=== PATIENT | female | born 1990 | race Caucasian/White ===

== ENCOUNTER → 2022-06-01 12:26 | Outpatient (CLI) | payer OTHER, SELFPAY | PROVIDERS: Referring Provider Internal Medicine; Visit Provider Internal Medicine | DX: Z23 Encounter for immunization (principal) | CPT/HCPCS: 90471; 90686 ==

== ENCOUNTER → 2022-11-27 07:50 | Outpatient (CLI) | payer OTHER, SELFPAY | PROVIDERS: Visit Provider Physician Assistant | DX: R30.0 Dysuria (principal) | CPT/HCPCS: 87077; 87086; 87186 ==

== ENCOUNTER 2023-01-27 06:54 | Emergency (ER) | payer OTHER, SELFPAY ==
[2023-01-27 06:59] VITALS: BP 122/72; PULSE 74; RESP 16; TEMP 36.3; O2SAT 100; BMI 33.2
--- NOTE | 2023-01-27 07:28 | ED_ITS ---
HPI - General Adult General Chief complaint: Urogenital-Female Stated complaint: watery menstrual cycle per pt Time Seen by Provider: 01/27/23 07:10 Source: patient Mode of arrival: Ambulatory History of Present Illness HPI narrative: Patient is a 32-year-old female. She is a . Her last was 5 years ago. She does have a ParaGard in place for control. This has been in place for just about 5 years. She is normally fairly regular with her menstrual cycles. A couple weeks ago she had what she describes as a ?normal? menstrual cycle. She states that she bled for approximately 7 days. She stated that the bleeding never actually went away but it did improve to the point that she thought that the cycle was ending however they never completely went away and for the past couple days it is now increased. States she is passing clots. She denies any urinary symptoms. No fevers. No change in bowel habits. No prior abdominal surgeries. 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 Related Data Allergies Allergy/AdvReac Type Severity Reaction Status Date / Time No Known Drug Allergies Allergy Unverified 11/27/22 07:58 Review of Systems Constitutional Constitutional: Reports system reviewed and no additional complaints, except as documented Gastrointestinal Gastrointestinal: Reports system reviewed and no additional complaints, except as documented Genitourinary Genitourinary: Reports system reviewed and no additional complaints, except as documented Musculoskeletal Musculoskeletal: Reports system reviewed and no additional complaints, except as documented Hematologic/Lymphatic On Anticoagulants: No Patient History Social History Smoking Status: Never smoker Smoking Status: Never smoker Substance Use Type: does not use Exam Initial Vital Signs Initial Vital Signs: Vital Signs Temperature 97.4 F L 01/27/23 06:59 Pulse Rate 74 01/27/23 06:59 Respiratory Rate 16 01/27/23 06:59 Blood Pressure 122/72 01/27/23 06:59 Pulse Oximetry 100 01/27/23 06:59 Oxygen Delivery Method Room Air 01/27/23 06:59 Const General: cooperative and comfortable HENMT Head: normal to inspection and normocephalic Resp Effort & Inspection: normal respiratory effort Cardio Rate: regular rate GI Inspection: normal to inspection and non-distended Skin General: no rashes or lesions noted Neuro General: patient alert, patient awake and moves all extremities Extrem General: normal to inspection Course Orders Ordered: ED Orders 01/27/23 07:28 US pelvic complete Stat 01/27/23 07:49 Basic Metabolic Panel Stat Complete Blood Count AUTO DIFF Stat Thyroid Stimulating Hormone Stat Vital Signs Vital signs: Vital Signs - 8 hr 01/27/23 06:59 Temperature 97.4 F L Pulse Rate 74 Respiratory Rate 16 Blood Pressure 122/72 Pulse Oximetry 100 Oxygen Delivery Method Room Air Medical Decision Making Lab Data Lab results reviewed: Yes I reviewed the patient's lab results. 01/27/23 07:49 01/27/23 07:49 Labs: Lab Results 01/27/23 01/27/23 01/27/23 Range/Units 07:49 07:49 07:49 WBC 5.8 (4.5-11.0) X10^3/uL RBC 4.53 (4.0-5.2) X10^6/uL Hgb 12.4 (12.0-16.0) g/dL Hct 36.7 (36-46) % MCV 80.9 (80-100) fL MCH 27.4 (26-34) PG MCHC 33.8 (30-36) % RDW 13.6 (11.6-14.8) % Plt Count 273 (150-400) X10^3/uL Neut % (Auto) 58.8 (50-75) % Lymph % (Auto) 30.8 (25-40) % Taliaferro % (Auto) 6.1 (3-14) % Eos % (Auto) 3.6 (2-4) % Baso % (Auto) 0.7 (0-2) % Neut # (Auto) 3400 (9778-8525) /uL Lymph # (Auto) 1800 (7590-2981) /uL Taliaferro # (Auto) 400 (0-900) /uL Eos # (Auto) 200 (0-450) /uL Baso # (Auto) 0 (0-100) /uL Sodium 139 (137-145) mmol/L Potassium 3.4 (3.4-5.1) mmol/L Chloride 103 (98-107) mmol/L Carbon Dioxide 30 (22-32) mmol/L BUN 10 (7-17) mg/dL Creatinine 0.70 (0.52-1.04) mg/dL Estimated GFR > 60 (>60) mL/min BUN/Creatinine Ratio 14.3 (6-22) Glucose 94 (70-100) mg/dL Calcium 9.1 (8.4-10.2) mg/dL TSH 1.03 (0.47-4.68) uIU/mL Point of Care Testing Test Results Negative Urine Dip Bedside Urine Glucose Negative Bedside Urine Bilirubin - Negative Bedside Urine Ketone - Negative Urine Specific Julian 1.015 Bedside Urine Occult Blood +++ Bedside Urine pH 7.0 Bedside Urine Protein - Negative Bedside Urine Urobilinogen - Negative Bedside Urine Nitrite - Negative Bedside Urine Leukocytes - Negative Esterase Point of care testing: Point of Care Testing Test Results Negative Urine Dip Bedside Urine Glucose Negative Bedside Urine Bilirubin - Negative Bedside Urine Ketone - Negative Urine Specific Julian 1.015 Bedside Urine Occult Blood +++ Bedside Urine pH 7.0 Bedside Urine Protein - Negative Bedside Urine Urobilinogen - Negative Bedside Urine Nitrite - Negative Bedside Urine Leukocytes - Negative Esterase Imaging Data US - DIP GUIDER STOVES: Radiologist's Impression: PROCEDURE:? US PELVIC COMPLETE ? INDICATIONS:? DUB ? TECHNIQUE:? Real-time scanning was performed of the pelvic organs, with image documentation.? Additional endovaginal scanning was necessary due to incomplete visualization of the adnexal and endometrial structures by transabdominal scanning.? ? COMPARISON:? None. ? FINDINGS:? ?? Uterus:? Uterus is anteverted and normal in size at 9.1 x 4.8 x 6.1 cm. The myometrium is homogeneous. ? The endometrium measures 9.3 mm combined thickness.? Echotexture is heterogenous ? Ovaries:? The right ovary measures 2.9 x 3.5 x 3.8 cm, with a calculated ovarian volume of 19.9 cc. The left ovary measures 1.2 x 3.2 x 1.7 cm, with a calculated ovarian volume of 3.4 cc. The ovaries have a normal sonographic appearance.? The right ovary has a 2.6 x 2.8 x 2.7 cm simple cyst.? Less than 12 follicles can be seen in each ovary.? No adnexal masses are seen. ? Other:? No pathologic free abdominal or pelvic fluid. ? ? IMPRESSION:? 1. No acute ultrasound abnormality. 2. IUD appears well positioned. 3. Simple right ovarian cyst.? MDM Narrative Medical decision making narrative: Patient's workup here in the emergency department is very reassuring. She is no t anemic. Not hypotensive. Ultrasound shows no acute pathology. She does have a nonhormonal IUD. We discussed options to include starting her on a oral hormonal control versus watching and waiting to see if her symptoms improve. After this discussion she would like to not start on any new medication. She was given information for follow-up with obgyn hospitalist physician here at this hospital. She was given return precautions. She expressed understanding and agreement. Discharge Plan Departure Patient Disposition: Home Clinical Impression: Abnormal vaginal bleeding Instructions: DI for Vaginal Bleeding Activity Restrictions/Additional Instructions: I do recommend that you talk with your primary doctor about a referral to see obgyn hospitalist physician. Return to the emergency department for new or worsening symptoms like we discussed. Referrals: Liliya Delong MD [Physician] - Miscellaneous,MD Alisa [Primary Care Provider] - Stand Alone Forms: Patient Portal/API
--- NOTE | 2023-01-27 07:28 | DI.US.S_ITS ---
PROCEDURE: US PELVIC COMPLETE INDICATIONS: DUB TECHNIQUE: Real-time scanning was performed of the pelvic organs, with image documentation. Additional endovaginal scanning was necessary due to incomplete visualization of the adnexal and endometrial structures by transabdominal scanning. COMPARISON: None. FINDINGS: Uterus: Uterus is anteverted and normal in size at 9.1 x 4.8 x 6.1 cm. The myometrium is homogeneous. The endometrium measures 9.3 mm combined thickness. Echotexture is heterogenous Ovaries: The right ovary measures 2.9 x 3.5 x 3.8 cm, with a calculated ovarian volume of 19.9 cc. The left ovary measures 1.2 x 3.2 x 1.7 cm, with a calculated ovarian volume of 3.4 cc. The ovaries have a normal sonographic appearance. The right ovary has a 2.6 x 2.8 x 2.7 cm simple cyst. Less than 12 follicles can be seen in each ovary. No adnexal masses are seen. Other: No pathologic free abdominal or pelvic fluid. IMPRESSION: 1. No acute ultrasound abnormality. 2. IUD appears well positioned. 3. Simple right ovarian cyst. We strive to produce accurate, complete, and clear reports of imaging services. To assist us in improving patient care, this report was composed using standard report templates and voice recognition software. Therefore, it may contain abnormal punctuation, insertions and/or omissions. Occasional wrong-word or sound-alike substitutions may occur. Though we review the report and make efforts to correct it, we do recommend that the report be read carefully in proper context to recognize any text inaccuracies. Dictated by: Aramis Hernandez M.D. on 01/27/2023 at 8:09 Approved by: Aramis Hernandez M.D. on 01/27/2023 at 8:12
[2023-01-27 07:59] LABS: Add Manual Diff / Slide Review NO; Basophils Absolute Auto 0 /uL (0-100); Basophils Percent Auto 0.7 % (0-2); Eosinophils Absolute Auto 200 /uL (0-450); Eosinophils Percent Auto 3.6 % (2-4); Hematocrit 36.7 % (36-46); Hemoglobin 12.4 g/dL (12.0-16.0); Lymphocytes Absolute Auto 1800 /uL (1100-4500); Lymphocytes Percent Auto 30.8 % (25-40); Mean Corpuscular HGB Conc 33.8 % (30-36); Mean Corpuscular Hemoglobin 27.4 PG (26-34); Mean Corpuscular Volume 80.9 fL (80-100); Monocytes Absolute Auto 400 /uL (0-900); Monocytes Percent Auto 6.1 % (3-14); Neutrophils Absolute Auto 3400 /uL (1500-7000); Neutrophils Percent Auto 58.8 % (50-75); Platelet Count 273 X10^3/uL (150-400); Red Blood Cell Count 4.53 X10^6/uL (4.0-5.2); Red Cell Distribution Width 13.6 % (11.6-14.8); White Blood Cell Count 5.8 X10^3/uL (4.5-11.0)
[2023-01-27 08:14] LABS: BUN Creatinine Ratio 14.3 (6-22); Blood Urea Nitrogen 10 mg/dL (7-17); Calcium 9.1 mg/dL (8.4-10.2); Carbon Dioxide 30 mmol/L (22-32); Chloride 103 mmol/L (98-107); Estimated Glomerular Filt Rate > 60 mL/min (>60); Glucose 94 mg/dL (70-100); HEMOLYSIS < 15 (0-50); Potassium 3.4 mmol/L (3.4-5.1); Sodium 139 mmol/L (137-145)
[2023-01-27 08:55] LABS: Thyroid Stimulating Hormone 1.03 uIU/mL (0.47-4.68)
== END 2023-01-27 09:40 | disposition home or self-care (01) ==
PROVIDERS: Emergency Provider Emergency Medicine
DX: N93.9 Abnormal uterine and vaginal bleeding, unspecified (principal)
CPT/HCPCS: 76830; 76856; 80048; 81003; 81025; 84443; 85025; 99283